=== PATIENT | male | born 1995 | race Asian ===

== ENCOUNTER 2022-04-16 14:15 | Inpatient (IN) | payer MEDICAID ==
[~2022-04-16] VITALS: Ht 172.7 cm; Wt 68.8 kg
[2022-04-16] MEDS ORDERED: OLANZapine 5 MG RAPDIS TABLET PO PRN (14:45)
[2022-04-16] MEDS ORDERED: ACETAMINOPHEN 325 MG TABLET PO PRN (14:45)
[2022-04-16] MEDS ORDERED: TUBERCULIN, PURIFIED PROTEIN DERIVATIVE 5 TU/0.1 ML SYRINGE ID ONE (14:45)
[2022-04-16] MEDS ORDERED: LOPERAMIDE HCL 2 MG CAPSULE PO PRN (14:45)
[2022-04-16] MEDS ORDERED: MAG HYDROX/AL HYDROX/SIMETH ES 30 ML SUSPENSION UDCUP PO PRN (14:45)
[2022-04-16] MEDS ORDERED: LORazepam 2 MG TABLET PO PRN (14:45)
[2022-04-16] MEDS ORDERED: MAGNESIUM HYDROXIDE SUSPENSION 30 ML UDCUP PO PRN (14:45)
[2022-04-16] MEDS ORDERED: PROMETHAZINE HCL 25 MG TABLET PO PRN (14:45)
[2022-04-16] MEDS ORDERED: ZOLPIDEM TARTRATE 10 MG TABLET PO PRN (14:45)
[2022-04-16] MEDS ORDERED: HydrOXYzine PAMOATE 50 MG CAPSULE PO PRN (14:45)
[2022-04-16] MEDS ORDERED: GuaiFENesin/D-METHORPHAN [SUGAR-FREE] 200-20MG/10 ML SYRUP UDCUP PO PRN (14:45)
[2022-04-16 17:24] VITALS: BP 117/68
[2022-04-16 20:28] VITALS: BP 130/78
[2022-04-16] MEDS: THIAMINE 100 MG TABLET PO SCH (20:40)
[2022-04-16] MEDS: MELATONIN 5 MG TABLET PO SCH (20:40)
[2022-04-16] MEDS ORDERED: OLANZapine 5 MG RAPDIS TABLET PO SCH (21:00)
[2022-04-17] MEDS: MULTIVITAMINS WITH MINERALS, THERAPEUTIC TABLET PO SCH (08:33)
[2022-04-17] MEDS: NALTREXONE HCL 50 MG TABLET PO SCH (08:33)
[2022-04-17] MEDS: THIAMINE 100 MG TABLET PO SCH ×2 (08:33→16:20)
[2022-04-17] MEDS: OMEGA-3/DHA/EPA/FISH OIL 1,000 MG CAPSULE PO SCH (08:33)
[2022-04-17] MEDS: FOLIC ACID 1 MG TABLET PO SCH (08:33)
[2022-04-17] MEDS ORDERED: PALIPERIDONE PALMITATE 234 MG/1.5 ML SYRINGE IM ONE (09:00)
[2022-04-17 09:05] VITALS: BP 103/53
[2022-04-17] MEDS: MELATONIN 5 MG TABLET PO SCH (21:00)
[2022-04-17] MEDS: OLANZapine 10 MG RAPDIS TABLET PO SCH (21:00)
[2022-04-18 01:14] VITALS: BP 115/78
[2022-04-18 08:39] VITALS: BP 128/67
[2022-04-18] MEDS: NALTREXONE HCL 50 MG TABLET PO SCH (09:08)
[2022-04-18] MEDS: MULTIVITAMINS WITH MINERALS, THERAPEUTIC TABLET PO SCH (09:08)
[2022-04-18] MEDS: THIAMINE 100 MG TABLET PO SCH ×2 (09:08→16:05)
[2022-04-18] MEDS: OMEGA-3/DHA/EPA/FISH OIL 1,000 MG CAPSULE PO SCH (09:09)
[2022-04-18] MEDS: FOLIC ACID 1 MG TABLET PO SCH (09:09)
[2022-04-18] MEDS ORDERED: MELA5TAB40 PO (19:39)
[2022-04-18] MEDS ORDERED: NALT50TA PO (19:39)
[2022-04-18] MEDS ORDERED: OLAN10TA26 PO (19:39)
[2022-04-18] MEDS ORDERED: OMEG-135 PO (19:39)
[2022-04-18 20:19] VITALS: BP 120/70
[2022-04-18] MEDS: MELATONIN 5 MG TABLET PO SCH (20:33)
[2022-04-18] MEDS: OLANZapine 10 MG RAPDIS TABLET PO SCH (20:33)
[2022-04-19] MEDS: MULTIVITAMINS WITH MINERALS, THERAPEUTIC TABLET PO SCH (08:51)
[2022-04-19] MEDS: OMEGA-3/DHA/EPA/FISH OIL 1,000 MG CAPSULE PO SCH (08:51)
[2022-04-19] MEDS: FOLIC ACID 1 MG TABLET PO SCH (08:51)
[2022-04-19] MEDS: NALTREXONE HCL 50 MG TABLET PO SCH (08:51)
[2022-04-19] MEDS: THIAMINE 100 MG TABLET PO SCH ×2 (08:51→16:20)
[2022-04-19 09:18] VITALS: BP 117/63
[2022-04-19] MEDS: OLANZapine 10 MG RAPDIS TABLET PO SCH (20:08)
[2022-04-19] MEDS: MELATONIN 5 MG TABLET PO SCH (20:08)
[2022-04-19 20:25] VITALS: BP 114/62
[2022-04-20] MEDS: MULTIVITAMINS WITH MINERALS, THERAPEUTIC TABLET PO SCH (08:42)
[2022-04-20] MEDS: OMEGA-3/DHA/EPA/FISH OIL 1,000 MG CAPSULE PO SCH (08:42)
[2022-04-20] MEDS: NALTREXONE HCL 50 MG TABLET PO SCH (08:42)
[2022-04-20] MEDS: FOLIC ACID 1 MG TABLET PO SCH (08:42)
[2022-04-20] MEDS: THIAMINE 100 MG TABLET PO SCH ×2 (08:42→16:17)
[2022-04-20] MEDS: OLANZapine 10 MG RAPDIS TABLET PO SCH (20:28)
[2022-04-20] MEDS: MELATONIN 5 MG TABLET PO SCH (20:28)
[2022-04-20 20:59] VITALS: BP 117/80
[2022-04-21 07:52] LABS: APPEARANCE,URINE TURBID (CLEAR); BILIRUBIN,URINE NEGATIVE (NEGATIVE); GLUCOSE, URINE (UA) NEGATIVE (NEGATIVE); KETONES,URINE NEGATIVE (NEGATIVE); LEUKOCYTE ESTERASE ,URINE NEGATIVE (NEGATIVE); NITRATE,URINE NEGATIVE (NEGATIVE); OCCULT BLOOD,URINE NEGATIVE (NEGATIVE); PH,URINE 5.5 (5.0-8.0); PROTEIN,URINE NEGATIVE (NEGATIVE); SPECIFIC GRAVITIY, URINE 1.023 (1.003-1.030); UROBILINOGEN,URINE <=1.0 mg/dL (<=1.0)
[2022-04-21 07:53] LABS: AMPHET/METH SCREEN,URINE NEGATIVE (NEGATIVE); BARBITURATE SCREEN, URINE NEGATIVE (NEGATIVE); BENZODIAZEPINES SCREEN,URINE NEGATIVE (NEGATIVE); CANNABINOID SCREEN,URINE NEGATIVE (NEGATIVE); COCAINE SCREEN,URINE NEGATIVE (NEGATIVE); METHADONE SCREEN, URINE NEGATIVE (NEGATIVE); OPIATE SCREEN,URINE NEGATIVE (NEGATIVE); PHENCYCLIDINE SCREEN,URINE NEGATIVE (NEGATIVE)
[2022-04-21 08:47] VITALS: BP 137/54
[2022-04-21] MEDS: THIAMINE 100 MG TABLET PO SCH ×2 (08:50→16:23)
[2022-04-21] MEDS: NALTREXONE HCL 50 MG TABLET PO SCH (08:50)
[2022-04-21] MEDS: OMEGA-3/DHA/EPA/FISH OIL 1,000 MG CAPSULE PO SCH (08:50)
[2022-04-21] MEDS: MULTIVITAMINS WITH MINERALS, THERAPEUTIC TABLET PO SCH (08:50)
[2022-04-21] MEDS: FOLIC ACID 1 MG TABLET PO SCH (08:50)
[2022-04-21] MEDS ORDERED: PALIPERIDONE PALMITATE 156 MG/ML SYRINGE IM ONE (09:00)
[2022-04-21] MEDS: MELATONIN 5 MG TABLET PO SCH (20:08)
[2022-04-21] MEDS: OLANZapine 10 MG RAPDIS TABLET PO SCH (20:09)
[2022-04-21 21:00] VITALS: BP 125/72
[2022-04-22 08:13] VITALS: BP 118/79
[2022-04-22] MEDS: THIAMINE 100 MG TABLET PO SCH ×2 (08:29→16:06)
[2022-04-22] MEDS: MULTIVITAMINS WITH MINERALS, THERAPEUTIC TABLET PO SCH (08:29)
[2022-04-22] MEDS: OMEGA-3/DHA/EPA/FISH OIL 1,000 MG CAPSULE PO SCH (08:29)
[2022-04-22] MEDS: FOLIC ACID 1 MG TABLET PO SCH (08:29)
[2022-04-22] MEDS: NALTREXONE HCL 50 MG TABLET PO SCH (08:29)
[2022-04-22] MEDS: OLANZapine 10 MG RAPDIS TABLET PO SCH (20:06)
[2022-04-22] MEDS: MELATONIN 5 MG TABLET PO SCH (20:07)
[2022-04-22 22:09] VITALS: BP 129/77
[2022-04-23] MEDS: THIAMINE 100 MG TABLET PO SCH ×2 (08:37→16:39)
[2022-04-23] MEDS: NALTREXONE HCL 50 MG TABLET PO SCH (08:37)
[2022-04-23] MEDS: MULTIVITAMINS WITH MINERALS, THERAPEUTIC TABLET PO SCH (08:37)
[2022-04-23] MEDS: FOLIC ACID 1 MG TABLET PO SCH (08:37)
[2022-04-23] MEDS: OMEGA-3/DHA/EPA/FISH OIL 1,000 MG CAPSULE PO SCH (08:37)
[2022-04-23 09:18] VITALS: BP 130/82
[2022-04-23] MEDS ORDERED: OMEG-135 PO (19:26)
[2022-04-23] MEDS ORDERED: OLAN10TA26 PO (19:26)
[2022-04-23] MEDS ORDERED: NALT50TA PO (19:26)
[2022-04-23] MEDS ORDERED: MELA5TAB40 PO (19:26)
== END 2022-04-23 18:30 | disposition home or self-care (01) | DRG 750 ==
LOC: B3A 14:23
PROVIDERS: ADMIT Psychiatry & Neurology Psychiatry; ATTEND Psychiatry & Neurology Psychiatry
DX: F25.0 Schizoaffective disorder, bipolar type (principal); R45.851 Suicidal ideations; Z91.199 Patient's noncompliance with other medical treatment and regimen due to unspecified reason; F41.9 Anxiety disorder, unspecified; K21.9 Gastro-esophageal reflux disease without esophagitis; E03.8 Other specified hypothyroidism; K59.00 Constipation, unspecified; Z55.9 Problems related to education and literacy, unspecified; Z59.9 Problem related to housing and economic circumstances, unspecified; Z63.9 Problem related to primary support group, unspecified; Z65.3 Problems related to other legal circumstances
CPT/HCPCS: 80307; 81003; Q9967